=== PATIENT | female | born 1975 | race Caucasian/White ===

== ENCOUNTER 2016-08-25 13:19 | Emergency (ER) | payer OTHER ==
[2016-08-25] MEDS ORDERED: METOCLOPRAMIDE 10 MG/2 ML VIAL ONE (18:21)
[2016-08-25] MEDS ORDERED: DIPHENHYDRAMINE 50 MG/ML VIAL ONE (18:22)
[2016-08-25] MEDS ORDERED: SODIUM CHLORIDE 0.9% 1,000 ML ONE (18:22)
== END 2016-08-25 19:58 | disposition home or self-care (01) ==
LOC: ER 13:19
CPT/HCPCS: 36415; 80053; 81003; 84702; 85025; 96361; 96374; 96375